=== PATIENT | male | born 1995 | race Caucasian/White ===

== ENCOUNTER 2022-11-14 10:12 | Outpatient (REF) | payer OTHER, SELFPAY ==
[2022-11-14 11:41] LABS: MANUAL DIFF FLAG NO
[2022-11-14 11:50] LABS: Basophils Absolute Auto 0.1 X10*3/uL (0.0-0.2); Basophils Percent Auto 0.8 % (0-2); Eosinophils Absolute Auto 0.5 X10*3/uL (0.0-0.4); Eosinophils Percent Auto 7.2 % (0-4); Hemoglobin 15.4 g/dl (14.0-18.0); Imm Gran Abs Auto 0.02 X10*3/uL (0.00-0.03); Imm Gran Pct Auto 0.3 % (0.0-0.4); Lymphocytes Absolute Auto 2.8 X10*3/uL (1.2-4.9); Lymphocytes Percent Auto 36.6 % (20-40); Mean Corpuscular Hemoglobin 32.2 pg (27.0-33.0); Mean Corpuscular Volume 91.9 fL (80.0-98.0); Mean Platelet Volume 9.1 fL (9.4-12.4); Monocytes Absolute Auto 0.7 X10*3/uL (0.1-1.2); Monocytes Percent Auto 8.6 % (2-11); Neutrophils Absolute Auto 3.5 x10*3/uL (2.0-8.3); Neutrophils Percent Auto 46.5 % (45-73); Platelet Count 264 X10*3/uL (160-400); Red Blood Count 4.79 X10*6/uL (4.60-5.80); Red Cell Distribution Width 12.3 % (11.0-16.0); White Blood Count 7.5 X10*3/uL (4.8-10.8)
[2022-11-14 12:35] LABS: Alanine Aminotransferase 69 U/L (0-40); Albumin Level 4.3 g/dL (3.5-5.0); Alkaline Phosphatase 72 U/L (39-117); Anion Gap 13 (12-20); Aspartate Amino Transferase 29 U/L (5-37); Bilirubin Total 0.7 mg/dL (0.0-1.0); Blood Urea Nitrogen 14 mg/dL (9-16); Calcium 9.4 mg/dL (8.4-10.2); Carbon Dioxide 25 mmol/L (22-29); Chloride 107 mmol/L (96-108); Cholesterol 172 mg/dL; Estimated Glomerular Filt Rate > 60; Glucose Fasting 109 mg/dL (60-99); HDL Cholesterol 23 mg/dL; Potassium 4.1 mmol/L (3.3-5.1); Sodium 141 mmol/L (135-145); Total Protein 6.8 g/dL (6.5-8.0); Triglycerides 416 mg/dL
[2022-11-14 12:43] LABS: TSH reflex Free T4 1.86 uIU/mL (0.32-4.0)
[2022-11-14 12:46] LABS: Syphilis Screen Nonreactive (Nonreactive)
[2022-11-14 12:47] LABS: HBS Num1 19.83 mIU/mL (0-7.99); HBc Num1 0.19 S/CO (0.00-0.79); HBsAGNum1 0.26 S/CO (0.00-0.99); HIV Num 1 212.61 S/CO (0.00-0.99); Hepatitis B Core Antibody Nonreactive (Nonreactive); Hepatitis B Surface Antigen Negative (Negative); ~HepC Num1 0.22 S/CO (0.00-0.79); ~Hepatitis B Surface Antibody REACTIVE (Nonreactive); ~Hepatitis C Antibody Nonreactive (Nonreactive)
[2022-11-14 14:20] LABS: HIV AB/AG Reactive (Nonreactive); HIV Num 3 179.88 S/CO
[2022-11-16 23:29] LABS: TS Negative Control Passed; TS Panel A 0; TS Panel B 0; TS Positive Control Passed; TSpotTB Negative (Negative)
[2022-11-20 10:46] LABS: HIV 1 Antibody POSITIVE
[2022-11-20 10:47] LABS: HIV 2 Antibody NEGATIVE
== END 2022-11-14 10:13 | disposition home or self-care (01) ==
LOC: HO.WFDLDS 10:12
PROVIDERS: Visit Provider Family Medicine
DX: Z00.00 Encounter for general adult medical examination without abnormal findings (principal); Z20.2 Contact with and (suspected) exposure to infections with a predominantly sexual mode of transmission; Z11.4 Encounter for screening for human immunodeficiency virus [HIV]
CPT/HCPCS: 36415; 80053; 80061; 84443; 85025; 86481; 86701; 86702; 86704; 86706; 86780; 86803; 87340; 87389

== ENCOUNTER 2023-11-07 10:34 | Outpatient (AMB) | payer OTHER, SELFPAY ==
--- NOTE | 2023-11-07 10:36 | MHC.PC.OV ---
Vital Signs 11/07/23 10:38 Height 6 ft 1 in Weight 303 lb BMI 40.0 BP 142/80 H Blood Pressure Location Lt brachial Position Sitting Pulse 85 Pulse Source Pulse Oximeter Temp 97.5 F Temp Source Oral Pulse Oximetry (%) 98 Oxygen Delivery Method Room Air Intake Visit Reasons: stomach pain; kidney area & Medical leave Intake Note: Patient is here for follow up on stomach pain, an in the kidney area, and has papers for work for medical leave. Allergies No Known Allergies Allergy (Verified 11/07/23 10:41) Medication List - Last Reconciled 11/07/23 by Steve Castro MD [id number] ala 50-200-25 mg (Biktarvy) 1 tab PO DAILY Tobacco use date assessed: 11/07/23 Dental Screening Dental Screen Date: 11/07/23 Did you have a dental visit in the last 12 months?: No Did you have a dental problem in the last 6 months where you did not have access to dental care?: No Was dental information given to patient?: Patient declined HPI stomach pain; kidney area & Medical leave HPI Details 28 y/o male presents to f/u ED visit for abd. pain at [facility]. Pt notes abd. pain resolved. He states he had been to ED for this a couple years ago. He does note GERD. Blood pressure today 142/80. [facility] Medical History (Updated 11/07/23 @ 11:32 by Steve Castro MD) Bipolar disorder ADHD Surgical History (Updated 11/07/23 @ 10:44 by Danielle Barrios CMA) [place] teeth extracted Family History (Updated 11/07/23 @ 10:46 by Danielle Barrios CMA) Father Substance abuse in family Family history of mental disorder Mother Family history of mental disorder Social History Housing: House Patient Tobacco Use Status: Never used Tobacco e-Cigarette/Vaping Use: Never Used Second Hand Smoke Exposure: No service: No Current occupational status: employed Current occupation: forklift material handler Current occupational exposures/hazards: No Cognitive needs: No Hearing needs: No Vision needs: No Questionnaire PHQ-9 Over the last 2 weeks, how often have you been bothered by any of the following problems? 1. Little interest or pleasure in doing things: nearly every day 2. Feeling down, depressed, or hopeless: several days 3. Trouble falling or staying asleep, or sleeping too much: nearly every day 4. Feeling tired or having little energy: nearly every day 5. Poor appetite or overeating: nearly every day 6. Feeling bad about yourself - or that you are a failure or have let yourself or your family down: nearly every day 7. Trouble concentrating on things, such as reading the newspaper or watching television: several days 8. Moving or speaking so slowly that other people could have noticed. Or the opposite - being so fidgety or restless that you have been moving around a lot more than usual: several days 9. Thoughts that you would be better off or of hurting yourself in some way: not at all Total score: 18 Depression Screening Interpretation: Positive Depression Screening Done: Yes 91834 - PHQ-9 Billing: Yes Source: Developed by Drs. Torsten Weller, Fe Stanley, Johan Correa and colleagues, with an educational cristin from [employer]. Thrive Questionnaire Date Thrive assessed: 11/07/23 I am a: Patient What is your living situation today?: I have a steady place to live Within the past 12 months, did the food you bought not last and you didn't have the money to get more?: Never true Within the past 12 months, did you worry whether your food would run out before you got money to buy more?: Never true Do you have trouble paying for medicines?: No Do you have trouble getting transportation to medical appointments?: No Do you have trouble paying your heating and electricity bill?: No Do you have trouble taking care of your child, family member or friend?: No Do you have trouble with day-to-day activities such as bathing, preparing meals, shopping, managing finances, etc.?: No Are you currently unemployed and looking for a job?: No Are you interested in more education?: No THRIVE Score: 0 AUDIT C Alcohol Use Questionnaire (AUDIT-C) 1. How often do you have a drink containing alcohol?: Monthly or less 2. How many drinks containing alcohol do you have on a typical day when you are drinking?: 1 or 2 Total Score: 1 RAYMOND-7 AMB Questionnaire RAYMOND-7 Date RAYMOND - 7 assessed: 11/07/23 Feeling nervous, anxious, or on edge: 0 = Not at all Not being able to stop or control worryin = Not at all Worrying too much about different things: 0 = Not at all Trouble relaxin = Not at all Being so restless that it is hard to sit still: 0 = Not at all Becoming easily annoyed or irritable: 0 = Not at all Feeling afraid as if something awful might happen: 0 = Not at all Total RAYMOND-7 score (0-4 normal; 5-9 mild; 10-14 moderate; 15-21 severe): 0 Source: Developed by Drs. Torsten Weller, Fe Stanley, Johan Correa and colleagues, with an educational cristin from [employer]. RAYMOND-7 Assessment Billing RAYMOND-7 Assessment Tool: RAYMOND-7 Assessment 35999 Physical exam (Primary Care) Vital Signs: Last Vital Signs Temp 97.5 F 11/07/23 10:38 Pulse 85 11/07/23 10:38 BP 142/80 H 11/07/23 10:38 Pulse Ox 98 11/07/23 10:38 Oxygen Delivery Method Room Air 11/07/23 10:38 BMI result Body Mass Index 40.0 Tobacco/Smoking Status: Tobacco use Status Tobacco use date assessed 11/07/23 11/07/23 10:55 Patient Tobacco Use Status Never used Tobacco 11/07/23 10:39 e-Cigarette/Vaping Use Never Used 11/07/23 10:39 PHQ-9: PHQ-9 Score PHQ-9: Total score 18 11/07/23 10:55 Depression Screening Interpretation: Positive Thrive Assessment: Date of Thrive Assessment Date Thrive assessed 11/07/23 11/07/23 10:55 Results AMB Urinalysis, Automated UA Leukoctes 0 Lelia/uL Last Edit by Danielle Barrios CMA on 11/07/23 11:21 UA Nitrite Negative Last Edit by Danielle Barrios CMA on 11/07/23 11:21 UA Urobilinogen 3.5 mg/dL Last Edit by Danielle Barrios CMA on 11/07/23 11:21 UA Protein 0 mg/dL Last Edit by Danielle Barrios CMA on 11/07/23 11:21 UA pH 6.0 Last Edit by Danielle Barrios CMA on 11/07/23 11:21 UA Blood 0 Mikel/uL Last Edit by Danielle Barrios CMA on 11/07/23 11:21 UA Specific [place] 1.030 Last Edit by Danielle Barrios CMA on 11/07/23 11:21 UA Ketone Negative Last Edit by Danielle Barrios CMA on 11/07/23 11:21 UA Bilirubin 0 mg/dL Last Edit by Danielle Barrios CMA on 11/07/23 11:21 UA Glucose 0 mg/dL Last Edit by Danielle Barrios CMA on 11/07/23 11:21 Assessment and Plan Assessment & Plan (1) Abdominal pain: Code(s): R10.9 - Unspecified abdominal pain Plan: Abdominal?pain?with?gastritis?diagnosed?at?ED Patient?was?at?ED?on?10/22/2023 He?was?given?fluids?and?sent?out?with?omeprazole?and?a?diagnosis?of?gastritis. Encouraged?him?to?continue?omeprazole?and?I?will?refer?him?to?Gastroenterology (2) GERD (gastroesophageal reflux disease): Code(s): K21.9 - Gastro-esophageal reflux disease without esophagitis Plan: Improved?on?omeprazole Continue?omeprazole (3) Hypertension: Code(s): I10 - Essential (primary) hypertension Plan: Blood?pressure?is?high.??He?had?been?on?lisinopril?and?verapamil Resuming?lisinopril?and?we?will?follow-up?at?his?next?visit (4) Bacteriuria: Code(s): R82.71 - Bacteriuria Plan: Urine?dip?in?office?shows?that?urine?is?maximally?concentrated?but?otherwise?negative. Given?recent?urinalysis?at[facility],?will?send?to?the?lab?for?urinalysis Orders: Orders Urine Culture Today R82.71 - Bacteriuria Comprehensive [place]. Panel Fast Today Z00.00 - Encounter for general adult medical examination without abnormal findings AMB Urinalysis Automated Today R10.9 - Unspecified abdominal pain UA and rflx microscopic Today R82.71 - Bacteriuria, Z00.00 - Encounter for general adult medical examination without abnormal findings Lipid Panel Today Z00.00 - Encounter for general adult medical examination without abnormal findings Microalbumin, Random (w Creat) Today I10 - Essential (primary) hypertension TSH reflex Free T4 Today Z00.00 - Encounter for general adult medical examination without abnormal findings Complete Blood Count Auto Diff Today Z00.00 - Encounter for general adult medical examination without abnormal findings Referrals Gastroenterology Referral K21.9 - Gastro-esophageal reflux disease without esophagitis, K29.70 - Gastritis, unspecified, without bleeding, R10.9 - Unspecified abdominal pain Medications: New omeprazole 40 mg PO DAILY 30 days 30 caps 3RF Changed From lisinopril 5 mg PO DAILY 30 days 30 tabs 2RF To lisinopril 5 mg PO DAILY 90 days 90 tabs 2RF Coding Level of Care Code Est Pt Level 4 (75233) Diagnoses Abdominal pain R10.9 GERD (gastroesophageal reflux disease) K21.9 Hypertension I10 Bacteriuria R82.71 Additional Codes RAYMOND-7 Assessment Billing - RAYMOND-7 Assessment Tool: RAYMOND-7 Assessment 40701 ([id number])
[2023-11-07 10:38] VITALS: BP 142/80; PULSE 85; TEMP 36.4; O2SAT 98; BMI 40.0
== END 2023-11-07 11:41 | disposition home or self-care (01) ==
PROVIDERS: PCP Family Medicine; Visit Provider Family Medicine
DX: R10.9 Unspecified abdominal pain (principal); K21.9 Gastro-esophageal reflux disease without esophagitis; I10 Essential (primary) hypertension; R82.71 Bacteriuria
CPT/HCPCS: 81003; 99214

== ENCOUNTER 2023-11-07 11:30 | Outpatient (REF) | payer OTHER, SELFPAY ==
[2023-11-07 14:25] LABS: Appearance Urine Turbid; Color Urine Yellow; Glucose Urine UA Negative (Negative); Leukocyte Esterase Urine Negative (Negative); Nitrite Urine Negative (Negative); PH 5.5 (5.0-9.0); Specific Gravity - Urine >= 1.030 (1.005-1.025); Urine Blood Negative (Negative); Urine Ketones Negative (Negative); Urine Protein Negative (Neg-Trace)
[2023-11-07 14:53] LABS: Creatinine Urine 185.75 mg/dL; Microalbum/Creatinine Ratio Ur 6.4 ug/mg cr (<30)
== END 2023-11-07 11:31 | disposition home or self-care (01) ==
LOC: HO.LAB 11:30
PROVIDERS: Visit Provider Family Medicine
DX: Z00.00 Encounter for general adult medical examination without abnormal findings (principal); R82.71 Bacteriuria; I10 Essential (primary) hypertension
CPT/HCPCS: 81003; 82043; 82570; 87086